=== PATIENT | female | born 1950 | race Caucasian/White ===

== ENCOUNTER 2022-06-04 06:12 | Day surgery (SDC) | payer MEDICARE ==
[2022-06-04] MEDS ORDERED: Lactated Ringers 1,000 ML IV SCH (06:30)
[2022-06-04] MEDS ORDERED: DIPRIVAN 200 MG/20 ML IV ONE (07:44)
[2022-06-04] MEDS ORDERED: Xylocaine-Mpf 2% 5 Ml Vial ONE (07:44)
[2022-06-04 09:14] VITALS: PULSE 70; O2SAT 95
[2022-06-04 09:32] VITALS: BP 156/79
--- NOTE | 2022-06-04 09:44 | OP ---
SURGERY DATE/TIME: 06/04/2022 0802 PREOPERATIVE DIAGNOSIS: Screening colonoscopy. POSTOPERATIVE DIAGNOSIS: Colon polyps x3, two in the sigmoid colon and one in the rectum. PROCEDURE: Colonoscopy. SURGEON: César Villa M.D. ANESTHESIA: MAC by Anthony Caballero CRNA. ESTIMATED BLOOD LOSS: Minimal. SPECIMENS: Two hot snare polypectomies one from the rectum and one from the sigmoid colon and one hot forceps polypectomy from the sigmoid colon. DESCRIPTION OF PROCEDURE: After informed written consent was obtained, the patient was taken to the endoscopy suite. She was placed in left lateral decubitus position. Anesthesia was titrated to desired level of consciousness. Digital rectal exam showed normal sphincter tone and no internal lesions. The scope was inserted into the rectum and sequentially the entire colonic mucosa was traversed. The level of cecum was reached and verified with direct visualization of the ileocecal valve. Upon withdrawal there were scattered diverticula throughout the colon mostly in the sigmoid colon. There was a large pedunculated polyp at 20 cm scope depth which was removed with hot snare. Likewise further up in proximal sigmoid colon there was a hot forceps polypectomy of a small sessile polyp. Further down there is another large polyp smaller in the distal sigmoid polyp but it was in the proximal rectum and is also removed with hot snare. The lesions were all hemostatic and polyps appeared to be completely removed and sent for pathology testing. Prior to withdrawal retroflexion was performed and showed no internal lesions. The scope was removed and the patient was transferred to the recovery room in good condition.
== END 2022-06-04 09:28 | disposition home or self-care (01) ==
LOC: SDC 06:12
PROVIDERS: ATTEND Family Medicine
DX: Z12.11 Encounter for screening for malignant neoplasm of colon (principal); D12.5 Benign neoplasm of sigmoid colon; D12.8 Benign neoplasm of rectum
CPT/HCPCS: 99100; J2704

== ENCOUNTER 2023-11-16 12:28 | Emergency (ER) | payer MEDICARE ==
[2023-11-16 14:22] VITALS: TEMP 97.3
--- NOTE | 2023-11-16 14:50 | ERPHSYRPT ---
- History of Present Illness Time Seen by Provider: 11/16/23 14:36 Source: patient Exam Limitations: no limitations Patient Subjective Stated Complaint: pt here cough,fever,aches, and some weakness for few days now, Triage Nursing Assessment: pt alert, walked in, resp easy, congested sounding cough, pt states productive, skin w/d/p Physician History: For the past 4 days pt has had coughing productive of white & yellow & brown phlegm, a sore throat, aches and fever up to 101 degrees; diarrhea 4 days ago only and chills for the past 2 days. Allergies/Adverse Reactions: hydrocodone [From [place]] Allergy (Intermediate, Verified 11/16/23 14:20) hives, reddness, itching, headache atorvastatin [From Lipitor] Adverse Reaction (Mild, Verified 11/16/23 14:20) muscle weakness Home Medications: No Reportable Medications [No Reported Medications] 11/16/23 [History] Hx Tetanus, Diphtheria Vaccination/Date Given: No Hx Influenza Vaccination/Date Given: Yes Hx Pneumococcal Vaccination/Date Given: Yes Immunizations Up to Date: Yes Travel Risk - International Travel Have you traveled outside of the country in past 3 weeks: No - Coronavirus Screening Are you exhibiting any of the following symptoms?: Yes Symptoms: Fever, Cough: New Onset - Vaccine Status Have you recieved a Covid-19 vaccination: Yes Regulatory Assistant: [employer] - Vaccination Dates Date of 2cond Vaccination (if applicable): 2020 - Review of Systems Constitutional: Fever, Chills Ears, Nose, & Throat: Throat Pain Respiratory: Cough Abdominal/Gastrointestinal: Diarrhea, No Vomiting - Past Medical History Neurological History: No Pertinent History ENT History: Other Cardiac History: No Pertinent History Respiratory History: No Pertinent History Endocrine Medical History: No Pertinent History Musculoskeletal History: Arthritis GI Medical History: No Pertinent History History: No Pertinent History Psycho-Social History: No Pertinent History Female Reproductive Disorders: No Pertinent History Other Medical History: R plantar fasciitis, dry eyes - Past Surgical History Past Surgical History: Yes Neuro Surgical History: No Pertinent History Cardiac: No Pertinent History Respiratory: No Pertinent History Gastrointestinal: Cholecystectomy, Hernia Repair Genitourinary: No Pertinent History Musculoskeletal: Orthopedic Surgery Female Surgical History: No Pertinent History Other Surgical History: rik hip replacement - Social History Smoking Status: Never smoker Exposure to second hand smoke: No Drug Use: none Patient Lives Alone: No - Nursing Vital Signs Nursing Vital Signs: Initial Vital Signs Temperature 97.3 F 11/16/23 14:21 Pulse Rate 87 11/16/23 14:21 Respiratory Rate 18 11/16/23 14:21 Blood Pressure 131/63 11/16/23 14:21 O2 Sat by Pulse Oximetry 92 L 11/16/23 14:21 Pain Scale Pain Intensity 3 - Physical Exam General Appearance: alert Eye Exam: eyes nml inspection Ears, Nose, Throat Exam: TMs normal, moist mucous membranes, pharyngeal erythema Neck Exam: normal inspection Respiratory Exam: normal breath sounds Cardiovascular Exam: normal heart sounds Gastrointestinal/Abdomen Exam: normal bowel sounds Neurologic Exam: alert, cooperative Skin Exam: warm, dry SpO2 Interpretation: borderline oxygenation SpO2: 92 - Course Nursing assessment & vital signs reviewed: Yes - Radiology Exams Chest X-ray Interpretation: Interpreted by me, No Pneumonia Ordered Tests: Active Orders 24 hr Category Date Time Status CHEST 2 VIEWS (PA AND LAT) Stat Exams 11/16/23 14:52 Taken Lab/Rad Data: Laboratory Results 11/16/23 11/16/23 Range/Units 14:32 14:32 Influenza Type A Ag NEGATIVE (NEGATIVE) Influenza Type B Ag NEGATIVE (NEGATIVE) RSV (PCR) POSITIVE (NEGATIVE) SARS-CoV-2 (PCR) NEGATIVE (NEGATIVE) Group A Strep Antibody NOT DETECTED (NEGATIVE) - Progress Progress: unchanged Counseled pt/family regarding: lab results, diagnosis, rad results Medical Desision Making - Diagnostic Testing Diagnostic test were ordered, analyzed, and reviewed by me: Yes Radiological Interpretation: Interpreted by me - Departure Departure Disposition: Home Clinical Impression: RSV infection Condition: Stable Critical Care Time: No Referrals: EDDA HUNG MD [Primary Care Provider] - Follow up/PCP as directed Instructions: Cough, Adult (DC), Respiratory Syncytial Virus, Adult (DC) Additional Instructions: Follow up with private doctor tomorrow.
[2023-11-16 15:17] LABS: INFLUENZA A NEGATIVE (NEGATIVE); INFLUENZA B NEGATIVE (NEGATIVE); SARS-CoV-2 Xpert Express NEGATIVE (NEGATIVE)
[2023-11-16 15:19] LABS: RESPIRATORY SYNCTIAL VIRUS POSITIVE (NEGATIVE)
[2023-11-16 17:40] VITALS: O2SAT 92
[2023-11-16 17:46] VITALS: BP 110/66; PULSE 72; RESP 18
--- NOTE | 2023-11-16 18:56 | XRAY ---
Indication: Cough, short of breath, and fever. Comparison: None PA/lateral chest demonstrates minimal lingula subsegmental atelectasis/scarring. Remaining heart and lungs unremarkable. Bony thorax intact with osteopenia and mild degenerative changes.
== END 2023-11-16 17:47 | disposition home or self-care (01) ==
LOC: ED 12:28
DX: J02.8 Acute pharyngitis due to other specified organisms (principal); B97.4 Respiratory syncytial virus as the cause of diseases classified elsewhere; R05.1 Acute cough; M79.10 Myalgia, unspecified site; R50.9 Fever, unspecified
CPT/HCPCS: 0241U; 71046; 87651; 99283